=== PATIENT | female | born 1970 | race Caucasian/White ===

== ENCOUNTER 2017-04-23 08:22 | Emergency (ER) | payer OTHER ==
[~2017-04-23] VITALS: Ht 157.5 cm; Wt 76.2 kg
--- NOTE | ~2017-04-23 | CR243 ---
[facility] A Service of [facility] & [facility] RADIOLOGY TEXT RESULTS PATIENT: ANNABEL IZQUIERDO LOCATION: [facility] : 70 UNIT #: [id number] AGE: [address]: Virgen Domingo APRN SEX: F ORDER DR: [id number] [facility] [address] [place], [place] [address] [id number] MR#: [id number] Acc #: [id number] NAME: ANNABEL IZQUIERDO. : 1970 SEX: F STUDY DATE/TIME: 04/23/2017 10:20 UNIT: [facility] ROOM: STUDY DESCRIPTION: CR Thoracic Spine 3 Views Attending Physician: Virgen Domingo A.P.R.N. Ordering Physician: Ed Ashok Josue M.D. Primary Care Physician: No Primary Care Physician MEDICAL IMAGING REPORT This report is preliminary unless electronic signature is present EXAM Thoracic spine series dated 04/23/2017. COMPARISON Lumbar spine series dated 04/23/2017. HISTORY Left side upper back pain, lower back pain for 3 weeks. FINDINGS AP and lateral examination of the dorsal segment shows normal mineralization and a satisfactory anatomical dorsal kyphosis. All body heights, interspaces, and posterior elements are normal anatomically without any indication of malignancy, trauma, unusual paraspinal soft tissue density mass, or congenital defect. IMPRESSION Normal thoracic spine. Dictated by... Jm Mccracken M.D. THIS IS AN ELECTRONICALLY VERIFIED REPORT Jm Mccracken M.D. at 04/23/2017 5:25 PM CPR/eliseo TD: 04/23/2017 11:49 JOB #: [id number] MEDICAL IMAGING REPORT Page 1 of 1 COPY
--- NOTE | ~2017-04-23 | EKG ---
PATIENT: ANNABEL IZQUIERDO UNIT #: [id number] Ventricular Rate: 67 BPM Atrial Rate: 67 BPM P-R Interval: 152 ms QRS Duration: 78 ms Q-T Interval: 382 ms QTC Calculation(Bezet): 403 ms P [place]: 80 degrees Calculated R [place]: 45 degrees Calculated T [place]: 49 degrees Diagnosis Line: Normal sinus rhythm Diagnosis Line: Normal ECG Diagnosis Line: No previous ECGs available Diagnosis Line: Confirmed by ZORAIDA SOLORZANO MD ([id number]) on 04/23/2017 Diagnosis Line: 5:51:30 PM INTERPRETING MD: JEANINE LA
--- NOTE | ~2017-04-23 | CR181 ---
[facility] A Service of [facility] & [facility] RADIOLOGY TEXT RESULTS PATIENT: ANNABEL IZQUIERDO LOCATION: [facility] : 70 UNIT #: [id number] AGE: [address]: Virgen Domingo APRN SEX: F ORDER DR: [id number] [facility] [address] [place], [place] [address] [id number] E MR#: [id number] Acc #: [id number] NAME: ANNABEL IZQUIERDO. : 1970 SEX: F STUDY DATE/TIME: 04/23/2017 10:21 UNIT: [facility] ROOM: STUDY DESCRIPTION: CR Lumbar Spine 2 or 3 Views Attending Physician: Virgen Domingo A.P.R.N. Ordering Physician: Ed Doctor [id number] [facility] Primary Care Physician: Primary Care Physician No MEDICAL IMAGING REPORT This report is preliminary unless electronic signature is present EXAM Lumbar spine series dated 04/23/2017 COMPARISON Thoracic spine series dated 04/23/2017 HISTORY Upper and lower back pain for 3 weeks. FINDINGS 3 views of the lumbar spine were obtained. Vertebral body heights and alignment are preserved. Intervertebral disc heights are intact. There appears to be facet changes bilaterally at L5-S1 given mild sclerotic changes in this region. No obvious pars defects or subluxation is seen. Adjacent soft tissues do not demonstrate any significant abnormality. Correlate with history of cholecystectomy. Dictated by... Jm Mccracken M.D. THIS IS AN ELECTRONICALLY VERIFIED REPORT Jm Mccracken M.D. at 04/23/2017 5:25 PM CPR/saloni TD: 04/23/2017 11:50 JOB #: [id number] MEDICAL IMAGING REPORT Page 1 of 1 COPY
[2017-04-23 09:13] LABS: URINE SOURCE CLEAN CATCH
[2017-04-23 09:29] LABS: POC - CKMB <1.0 ng/mL (0.0-7.9); POC - TROPONIN <0.05 ng/mL (<=0.05)
[2017-04-23 09:32] LABS: URINE APPEARANCE CLEAR; URINE BILIRUBIN NEG (NEG); URINE BLOOD NEG (NEG); URINE COLOR YELLOW; URINE GLUCOSE NEG (NEG); URINE KETONE NEG (NEG); URINE LEUKOCYTE ESTERASE NEG (NEG); URINE NITRATE NEG (NEG); URINE PROTEIN NEG (NEG); URINE SPECIFIC GRAVITY 1.018 (1.003-1.035); URINE UROBILINOGEN 0.2 MG/DL (NEG)
[2017-04-23 09:38] LABS: CULTURE INDICATED? NO
[2017-04-23 09:48] LABS: BASOPHIL% 0.6 % (0-2.5); EOSINOPHIL# 0.1 X10e3 (0-0.7); EOSINOPHIL% 2.3 % (0.0-7.0); HEMATOCRIT 36.8 % (35.0-45.0); HEMOGLOBIN 12.5 gm/dL (12.0-16.0); LYMPHOCYTE# 1.5 X10e3 (1.0-3.5); LYMPHOCYTE% 26.7 % (17.0-45.0); MEAN CELL VOLUME 89.6 FL (83-96); MEAN CORPUSCULAR HEMOGLOBIN 30.5 PG (28-34); MEAN PLATELET VOLUME 9.1 FL (6.5-11.5); MONOCYTE# 0.4 X10e3 (0-1.0); MONOCYTE% 7.1 % (3.0-12.0); NEUTROPHIL# 3.6 X10e3 (1.5-7.1); NEUTROPHIL% 63.3 % (40-75); PLATELET COUNT 252 X10e3 (140-420); RED BLOOD COUNT 4.11 X10e (3.90-5.30); WHITE BLOOD COUNT 5.7 X10e3 (4.0-10.5)
[2017-04-23 09:50] LABS: DIFF IND NO
[2017-04-23 10:15] LABS: ALBUMIN SERUM 4.4 g/dL (3.5-5.0); BILIRUBIN,TOTAL 0.4 mg/dL (0.2-2.0); BUN/CREATININE RATIO 17.5; CALCIUM SERUM 9.2 mg/dL (8.4-10.2); CREATININE SERUM 0.8 mg/dL (0.6-1.4); GLOM FILT RATE Estimated 88.5 mL/min (>60); POTASSIUM 3.7 mmol/L (3.5-5.1); PROTEIN TOTAL SERUM 7.1 g/dL (6.0-8.3)
== END 2017-04-23 11:20 | disposition home or self-care (01) ==
LOC: CED 08:22
PROVIDERS: Nurse Practitioner
DX: S39.012A Strain of muscle, fascia and tendon of lower back, initial encounter (principal); I10 Essential (primary) hypertension; Z79.899 Other long term (current) drug therapy; X58.XXXA Exposure to other specified factors, initial encounter; Y92.9 Unspecified place or not applicable
CPT/HCPCS: 36415; 72072; 72100; 80053; 81003; 82553; 83690; 84484; 84703; 85025; 93005; 96361; 96374; 96375; 99284; J1100; J1885